=== PATIENT | male | born 1990 | race Hispanic/Latino ===

== ENCOUNTER 2016-12-12 01:28 | Emergency (ER) | payer OTHER ==
[2016-12-12] MEDS ORDERED: TYLENOL PO ONE (01:55)
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
[2016-12-12 03:09] VITALS: BP 121/75
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
[2016-12-12] MEDS ORDERED: NACL ONE (21:52)
== END 2016-12-12 03:36 | disposition home or self-care (01) ==
LOC: ED 01:28
DX: R68.84 Jaw pain (principal); K08.89 Other specified disorders of teeth and supporting structures
CPT/HCPCS: 70486; 99284